=== PATIENT | female | born 1950 | race Caucasian/White ===

== ENCOUNTER → 2022-01-09 | Outpatient (CLI) | payer MEDICARE, SELFPAY ==
--- NOTE | 2022-01-09 12:00 | BONBX_PTH ---
PATIENT: RICHA CINTRON [facility] U#:[id number] AGE/SX: 71/F ROOM: RE01/09/[address]: Dr. Tani Schrader DO : 1950 BED: DIS: 01/09/2022 SPEC #: [id number] RECD: 01/09/22 14:52 STATUS: NEHEMIAH REDarlene #: [id number] EDGAR: 01/09/22 12:[address]: Tani Schrader DEPT: SURGICAL PATHOLOGY RECD BY: Mary Garrett ENTERED: 01/10/22 09:06 SP TYPE: Bone OTHR DR: TIARRA Tissues: Intervertebral disc, NOS Procedures: Decalcification bone/plaque Surgery Specimen Level IV HEADER OPERATION: Lumbar 5 kyphoplasty PRE-OP DIAGNOSIS: Wedge compression fracture of L5 vertebra TISSUE SUBMITTED: Lumbar 5 vertebra MICROSCOPIC DIAGNOSIS Lumbar 5 vertebra, kyphoplasty, biopsy: Pieces of bone with reactive changes, negative for malignancy, clinically compression fracture of L5 vertebra. See comment. LEORA:fabrice 01/11/2022 COMMENT Correlation with clinical, radiologic findings and appropriate follow up are necessary. MICROSCOPIC DESCRIPTION Slides are reviewed. GROSS DESCRIPTION Received in fixative is one container labeled with the patient's name and designated lumbar 5 vertebra. The specimen consists of multiple fragments of bone that in aggregate measure 1 x 0.5 x 0.2 cm. The specimen is totally submitted in one cassette after decalcification. / LEORA:fabrice 01/10/2022 TC:5 CPT: 20498, 46948
== END | disposition home or self-care (01) ==
LOC: LABSPEC 15:05
PROVIDERS: Referring Provider Orthopaedic Surgery; Visit Provider Orthopaedic Surgery
DX: M48.56XA Collapsed vertebra, not elsewhere classified, lumbar region, initial encounter for fracture (principal)
CPT/HCPCS: 88305; 88307; 88311

== ENCOUNTER 2023-01-25 17:00 | Inpatient (IN) | payer MEDICARE, SELFPAY ==
[2023-01-25 17:00] VITALS: BP 109/87; PULSE 84; RESP 16; TEMP 36.4; O2SAT 96
--- NOTE | 2023-01-25 19:36 | EDS_ITS ---
HPI HPI - GI History of Present Illness Chief Complaint: Nausea/Vomiting Informant: patient and spouse/S.O. Abdominal Pain/Flank Pain Onset: Days Context: Gradual Onset Timing: Intermittent Nausea/Vomiting/Emesis GI Symptom: Positive for Nausea and Vomiting Diarrhea/Melena/Hematochezia GI Symptom: Negative for Diarrhea, Melena or Hematochezia Associated Symptoms Associated Symptoms: Negative for Dysuria, Frequency, Hematuria or Urgency Narrative Narrative: 72-year-old female history of chronic kidney disease, hypertension. Has had nausea and vomiting for last 3 days. Decreased oral intake. She is able to hold down fluids. Primary care physician started in office and wanted her evaluated emergency department and receive IV fluids. She denies abdominal pain. Denies any dysuria. Denies any fever. Prior similar symptoms: Yes Recent Illness/Hospitalization: No PFSH PFSH Home Medications tramadol 50 mg tablet 50 mg PO Q6H PRN PRN Pain 08/10/13 [History Last Taken 08/10/13 05:30] aspirin 81 mg chewable tablet 81 mg PO DAILY@0800 ##30 08/13/13 [Rx Last Taken Unknown] atorvastatin 80 mg tablet 80 mg PO QHS ##30 08/13/13 [Rx Last Taken Unknown] Allergy/AdvReac Type Severity Reaction Status Date / Time Penicillins Allergy Intermediate Angioedema Verified 01/25/23 17:01 Sulfa (Sulfonamide Allergy Intermediate Angioedema Verified 01/25/23 17:01 Antibiotics) Social History Smoking Status: Former smoker ROS ROS ED ROS Narrative Nausea and vomiting. No diarrhea. No fever. No abdominal pain. Review of Systems ROS Unobtainable: Denies due to encephalopathy Constitutional Constitutional ED: Denies chills or fever(s) ENT ENT ED: Denies ear pain Cardiovascular Cardiovascular: Denies chest pain Respiratory/Chest Respiratory/Chest: Denies cough Gastrointestinal Gastrointestinal: Reports nausea and vomiting; Denies abdominal pain, constipation, diarrhea or melena Genitourinary Genitourinary ED: Denies dysuria or hematuria Musculoskeletal Musculoskeletal: Denies arthralgias Neurologic Neurologic: Denies headache(s) Psychiatric Psychiatric: Denies anxiety or depression Endocrine Endocrinology: Denies polydipsia Hematologic/Lymphatic Hematologic/Lymphatic: Denies easy bleeding Allergic/Immunologic Allergic/Immunologic ED: Denies mouth swelling or tongue swelling EXAM Physical Exam Narrative Exam Narrative: 72-year-old female no acute distress. Vital signs stable afebrile. Initial blood pressure 109/87. Heart rate 84. She does not look septic or toxic. H EENT exam unremarkable. Moist weeks membranes. Neck nontender. No JVD. Lungs clear to auscultation bilaterally. Heart regular rhythm rate about 80. Abdomen soft, nontender, nondistended, normal bowel sounds without peritoneal signs. No signs of obstruction. Right upper right lower quadrant unremarkable. Moving all 4 extremities. Nontender no edema. Patient is awake and alert with no focal motor deficits. I gave her a glass of water she was able to swallow without any difficulty and hold it down. Const Vital Signs: 01/25/23 17:00 01/25/23 20:04 Temperature 97.6 F L Temperature Source Temporal Pulse Rate 84 65 Respiratory Rate 16 18 Blood Pressure 109/87 H 145/73 H Blood Pressure Mean 94 97 Pulse Ox 96 96 Oxygen Delivery Method Room Air Room Air Positive well nourished and well developed; Negative for obese, cachectic, contractures or unkempt General Appearance ED: well developed and NAD; Negative for unkempt, cachectic, contractures or pallor Nutritional Appearance: Negative for cachectic or obese HEENT Reports moist mucous membranes normocephalic and atraumatic; Negative for trauma or tenderness Eyes PERRL and EOMs intact bilaterally General Eye ED: Negative for pale conjunctiva or scleral icterus Neck no lymphadenopathy, supple and no JVD General: Negative for tenderness Carotids: Negative for other Lymph Lymphatic: Negative for other Resp normal respiratory effort and clear to auscultation bilaterally Effort and Inspection: Negative for respiratory distress Auscultation: Negative for rales, rhonchi or wheezes Cardio regular rate, regular rhythm, S1 normal heart sound, S2 normal heart sound and no murmurs Rate: Negative for bradycardia or tachycardic Rhythm: Negative for abnormal rhythm GI non-tender, non-distended and no masses Inspection: Negative for abdominal distention Auscultation: normoactive bowel sounds Palpation: soft; Negative for tender, guarding, rigid, hepatomegaly, splenomega ly, hernia, mass, pulsatile mass or rebound tenderness present Back/Spine no CVA tenderness General Back: Negative for CVA tenderness Cervical Spine: Negative for cervical spine tenderness Thoracic Spine / Upper Back: Negative for thoracic spinal tenderness Lumbar Spine / Lower Back: Negative for lumbar spinal tenderness Coccyx: Negative for other Extremity full ROM General Extremety ED: Negative for edema or tenderness General Extremity: Negative for edema Neuro CN's II-XII intact bilaterally and moves all extremities Sensorium / Orientation: alert, oriented to person, oriented to place and oriented to time; Negative for orientation impaired, confused, lethargic or stuporous Motor Exam: strength 5/5 throughout Psych mental status grossly normal and thought process normal Appearance: Negative for unkempt Attitude: No agitated Mood & Affect: Negative for depressed, anxious or tearful Skin no wounds General Skin Exam: Negative for jaundice or pallor Lesions: no lesions Rashes: no rashes Trauma: Negative for abrasion Nails: Negative for discolored MDM MDM MDM Narrative Medical decision making narrative: 2-year-old nausea vomiting for several days. May be dehydrated. We will see of IV fluids. She does not need anything for nausea at this time. Her abdomen is completely benign I do not think she needs any imaging. Screening labs to be obtained. Repeat exam patient is feeling better after liter normal saline. Her labs showed a BUN and creatinine of 53 and 2.57. We do not have any recent labs we had them from 2013 about 9 years ago. I spoke to the primary care physician on- call for her primary care physician and they instructed me that that she had labs 3 weeks ago and had a normal BUN and creatinine of 10 and 1 at that time. Patient be admitted to the hospitalist for further IV hydration. Second liter be given in our. History & Record Review Discussion w/independent historian: Patient Additional record(s) reviewed:: Prior inpatient record, Prior outpatient record, Prior ED visit and Prior labs Lab Data Attestation: I reviewed the patient's lab results. Lab results narrative: CBC shows white count 9. H&H 11.8 and 37. Platelets 398. Electrolytes show a gap of 7. BUN of 53 and creatinine 2.57. Liver enzymes unremarkable. Labs: Laboratory Results - last 24 hr 01/25/23 20:05 WBC 9.0 RBC 3.95 L Hgb 11.8 L Hct 37.5 MCV 94.9 MCH 29.9 MCHC 31.5 L RDW Std Deviation 63.3 H RDW Coeff of Vangie 18.4 H Plt Count 398 MPV 10.2 Immature Gran % (Auto) 0.400 Neut % (Auto) 56.3 Lymph % (Auto) 29.7 Banks % (Auto) 10.7 H Eos % (Auto) 2.3 Baso % (Auto) 0.6 Absolute Neuts (auto) 5.1 Absolute Lymphs (auto) 2.67 Nucleated RBC % 0 Sodium 136 Potassium 3.8 Chloride 105 Carbon Dioxide 24.0 Anion Gap 7 BUN 53 H Creatinine 2.57 H Estim Creat Clear Calc 17.96 Est GFR (MDRD) Af Amer 24 L Est GFR (MDRD) Non-Af 20 L BUN/Creatinine Ratio 20.6 H Glucose 72 L Calcium 9.4 Total Bilirubin 0.30 AST 27 ALT 17 Alkaline Phosphatase 96 Total Protein 7.5 Albumin 3.4 Globulin 4.1 Albumin/Globulin Ratio 0.8 L Discharge Plan Triage Chief Complaint: Nausea/Vomiting ED Provider: Uzair Jim Dx/Rx/DC Orders Clinical Impression: Acute kidney injury, Acute dehydration, Nausea & vomiting Prescriptions: No Action tramadol 50 MG tablet 50 mg PO Q6H PRN PRN (Reason: Pain) Patient Comments: arthritic pain atorvastatin 80 MG tablet 80 mg PO QHS Qty: 30 0RF Patient Comments: cholesterol lowering aspirin 81 MG tablet,chewable 81 mg PO DAILY@0800 Qty: 30 0RF Patient Comments: antiplatelet Primary Care Provider: Carlos Carrero Referrals: Carlos Carreor DO [Primary Care Provider] - Disposition Disposition: [facility]
[2023-01-25 20:00] VITALS: BMI 20.3
[2023-01-25] MEDS: 0.9% Normal Saline 1,000 ML 1000 ML IV (20:02)
[2023-01-25 20:04] VITALS: BP 145/73; PULSE 65; RESP 18; O2SAT 96
[2023-01-25 20:33] LABS: Absolute Lymphocyte Count 2.67 X10^3/uL (0.83-4.51); Absolute Neutrophil Count 5.1 X10^3/uL (2.0-7.7); Basophil# 0.05 X10^3/uL; Basophil% 0.6 % (0-1); Eosinophil# 0.21 X10^3/uL; Eosinophils% 2.3 % (0-5); Hematocrit 37.5 % (37-47); Hemoglobin 11.8 g/dL (12.0-15.0); Lymphocyte # 2.67 X10^3/ul (0.83-4.51); Lymphocyte % 29.7 % (19-41); Mean Corp Hgb Conc 31.5 g/dL (32-36); Mean Corpuscular Hgb 29.9 pg (27.0-32.0); Mean Corpuscular Volume 94.9 fL (81-99); Mean Platelet Vol. 10.2 fl (6.2-12.0); Monocyte# 0.96 X10^3/uL; Monocyte% 10.7 % (0-10); NRBC Flagged by Analyzer 0 % (0-5); Neutrophil # 5.06 X10^3/uL (2.7-7.7); Neutrophil % 56.3 % (47-70); Platelet Count 398 K/mm3 (150-450); RBC Distribution Width CV 18.4 % (11.6-14.6); RBC Distribution Width SD 63.3 fl (35.1-43.9); Red Blood Count 3.95 M/mm3 (4.2-5.4)
[2023-01-25 20:54] LABS: ALB/GLOB Ratio 0.8 RATIO (0.9-2.4); AST(SGOT) 27 U/L (15-37); Alanine Aminotransfer ALT/SGPT 17 U/L (13-56); Albumin, Serum 3.4 g/dL (3.2-5.0); Alkaline Phosphatase 96 U/L (45-117); Anion Gap 7 (5-15); BUN 53 mg/dL (7-18); BUN/Creat Ratio 20.6 RATIO (10-20); Calcium,Total 9.4 mg/dL (8.5-10.1); Chloride 105 mmol/L (98-107); Creatinine, Serum 2.57 mg/dL (0.55-1.02); EST Glomerular Filtration Rate 20 mL/min (>60); Est Glom Filt Rate - Afr Amer 24 mL/min (>60); Estimated Creatinine Clearance 17.96 ml/min; Globulin 4.1 g/dL (2.2-4.2); Glucose 72 mg/dL (74-106); Potassium 3.8 mmol/L (3.5-5.1); Protein, Total 7.5 g/dL (6.4-8.2); Sodium Level 136 mmol/L (136-145)
[2023-01-25] MEDS: 0.9% Normal Saline 1,000 ML 999 ML IV (22:14)
[2023-01-25 22:15] VITALS: BP 112/61; PULSE 86; RESP 18; O2SAT 96
--- NOTE | 2023-01-25 23:20 | HP.PCM.HOS_ITS ---
HPI - General General Date of Admission: 01/25/23 Date of Service: 01/25/23 Chief Complaint: Intractable N/V. HPI Narrative The patient is a 72 y/o F w/ PMHx: Possible mural thrombus on chronic eliquis but patient poor historian regarding this history, Anxiety and Depression, HTN, CKD unclear stage, recent discharge following mechanical fall w/ L hip fracture s/p partial replacement who presents to the [facility] ED on 01/25/23 with history of p ersistent unrelenting nausea and emesis with no fever, chills, diarrhea, abdominal pain/bloating that lasted 3 days and the completely resolved over the last 3 days aside from notable fatigue and malaise but she has been tolerating oral intake now without issue but presented for evaluation by PCP as follow-up and labs were obtained with notable DANIEL prompting referral to the ED for evaluation and treatment. She noted that her family was well and when she was sick did not have any similar symptoms. Work-up in the ED included heart rate 65, BP 145/73, respiratory rate 18, 96% on room air with most recent vital signs heart rate 86, BP 112/61, CBC with WC 9.0, hemoglobin 11.8, MCV 94.9, platelet 398 without marked shift, CMP with BUN/creatinine 53/2.57, glucose 72, Paddock profile unremarkable. In the ED patient administered 2 L normal saline. [facility] Medical History (Updated 01/26/23 @ 00:[address] Khloe Salazar MD) Anxiety and depression Chronic anemia Chronic anticoagulation CKD (chronic kidney disease) Former tobacco use HLD (hyperlipidemia) HTN (hypertension) Home Medications tramadol 50 mg tablet 50 mg PO Q6H PRN PRN Pain 08/10/13 [History Last Taken 08/10/13 05:30] acetaminophen 500 mg capsule 1,000 mg PO Q6H PRN pain 01/25/23 [History Last Taken Unknown] alendronate 70 mg tablet 70 mg PO QWEEK 01/25/23 [History Last Taken Unknown] apixaban 5 mg tablet (Eliquis) 5 mg PO BID 01/25/23 [History Last Taken Unknown] carvedilol 25 mg tablet 25 mg PO BID 01/25/23 [History Last Taken Unknown] duloxetine 30 mg capsule,delayed release 60 mg PO DAILY 01/25/23 [History Last Taken Unknown] potassium 99 mg tablet 99 mg PO DAILY 01/25/23 [History Last Taken Unknown] valsartan 80 mg tablet 80 mg PO BID 01/25/23 [History Last Taken Unknown] Allergy/AdvReac Type Severity Reaction Status Date / Time Penicillins Allergy Intermediate Angioedema Verified 01/25/23 17:01 Sulfa (Sulfonamide Allergy Intermediate Angioedema Verified 01/25/23 17:01 Antibiotics) adopted (She does not know her biological maternal or paternal family history.) Surgical History (Updated 01/26/23 @ 00:[address] Khloe Salazar MD) History of hip surgery History of hysterectomy Hx of appendectomy Hx of cholecystectomy Social History (Updated 01/26/23 @ 00:[address] Khloe Salazar MD) household members: spouse Smoking Status: Former smoker how long ago did patient quit smoking: Quit 7 years prior to 01/26/23, smoked 1 ppd x 40 yrs. alcohol intake: never substance use type: does not use ROS ROS Narrative Admission Review of Systems: CONSTITUTIONAL: No weight loss, fever, chills, + weakness or fatigue. HEENT: Eyes: No visual loss, blurred vision, double vision or yellow sclerae. Ears, Nose, Throat: No hearing loss, sneezing, congestion, runny nose or sore throat. SKIN: No rash or itching, lesions, wounds. CARDIOVASCULAR: No chest pain, chest pressure or chest discomfort, palpitations, edema, orthopnea, syncopal events. RESPIRATORY: No shortness of breath, cough or sputum, wheezing, hemoptysis. GASTROINTESTINAL: + anorexia, nausea, vomiting. No diarrhea, abdominal pain, melena, BRBPR. GENITOURINARY: No dysuria, frequency, urgency or retention. NEUROLOGICAL: No headache, dizziness, syncope, paralysis, ataxia, numbness or tingling in the extremities, focal weakness, change in bowel or bladder control, seizure. MUSCULOSKELETAL: + muscle, back pain, joint pain or stiffness. HEMATOLOGIC: + anemia, bleeding or bruising. LYMPHATICS: No enlarged nodes. No history of splenectomy. PSYCHIATRIC: + history of depression or anxiety. ENDOCRINOLOGIC: No reports of sweating, cold or heat intolerance. No polyuria or polydipsia. ALLERGIES: + history of angioedema. Vital Signs Vital Signs Vital Signs: 01/25/23 17:00 01/25/23 20:04 01/25/23 22:15 Temperature 97.6 F L Temperature Source Temporal Pulse Rate 84 65 86 Respiratory Rate 16 18 18 Blood Pressure 109/87 H 145/73 H 112/61 Blood Pressure Mean 94 97 78 Pulse Ox 96 96 96 Oxygen Delivery Method Room Air Room Air Room Air Weight Weight: 126 lb 12.253 oz Body Mass Index (BMI) 20.3 Physical Exam Narrative Physical Examination: General: Awake, alert, oriented x 3 and cooperative, seated upright in the ED bed, fatigued but notes still feeling well and tolerating diet. Skin: Normal color, normal turgor, no icterus, no cyanosis except for recent left hip partial replacement status post mechanical fall with fracture, incision well-appearing, intact, miriam recently removed. HEENT: AT/NC, EOMI, PERRLA, mildly dry MM, no carotid bruits or JVD noted. Lungs: CTA bilaterally, moderate effort, mild decrease BL bases, no rales, ronchi or wheezing. Heart: Regular rate and rhythm; no gallop, rub audible. Abdomen: Soft, NTTP, ND, mildly hyperactive BS, no HSM. Extremities: No cyanosis, clubbing, or edema, see skin is status post recent left hip partial replacement status post mechanical fall with hip fracture. Neurological: Patient awake, alert, oriented as noted, cognitive function intact; pupils equally reactive to light and accommodation, cranial nerves II- XII grossly normal, moving all 4 extremities, no focal deficits, strength moderately globally decreased secondary to acute presentation and recent left hip repair Psychiatric: Affect appears fatigued otherwise normal, no acute evidence of depressive or anxiety feelings. Results Lab / Micro Data 01/25/23 20:05 01/25/23 20:05 Labs: Laboratory Results - last 24 hr 01/25/23 20:05: WBC 9.0, RBC 3.95 L, Hgb 11.8 L, Hct 37.5, MCV 94.9, MCH 29.9, MCHC 31.5 L, RDW Std Deviation 63.3 H, RDW Coeff of Vangie 18.4 H, Plt Count 398, MPV 10.2, Immature Gran % (Auto) 0.400, Neut % (Auto) 56.3, Lymph % (Auto) 29.7, Routt % (Auto) 10.7 H, Eos % (Auto) 2.3, Baso % (Auto) 0.6, Absolute Neuts (auto) 5.1, Absolute Lymphs (auto) 2.67, Nucleated RBC % 0, Sodium 136, Potassium 3.8, Chloride 105, Carbon Dioxide 24.0, Anion Gap 7, BUN 53 H, Creatinine 2.57 H, Estim Creat Clear Calc 17.96, Est GFR (MDRD) Af Amer 24 L, Est GFR (MDRD) Non-Af 20 L, BUN/Creatinine Ratio 20.6 H, Glucose 72 L, Calcium 9.4, Total Bilirubin 0.30, AST 27, ALT 17, Alkaline Phosphatase 96, Total Protein 7.5, Albumin 3.4, Globulin 4.1, Albumin/Globulin Ratio 0.8 L Assessment & Plan Assessment/Plan (1) Acute kidney injury: PLAN: Plan The patient is a 72 y/o F w/ PMHx: Possible mural thrombus on chronic eliquis but patient poor historian regarding this history, Anxiety and Depression, HTN, CKD unclear stage, recent discharge following mechanical fall w/ L hip fracture s/p partial replacement who presents to the [facility] ED on 01/25/23 with history of persistent unrelenting nausea and emesis with no fever, chills, diarrhea, abdominal pain/bloating that lasted 3 days and the completely resolved over the last 3 days aside from notable fatigue and malaise but she has been tolerating oral intake now without issue but presented for evaluation by PCP as follow-up and labs were obtained with notable DANIEL prompting referral to the ED for evaluation and treatment. #2. Acute kidney injury on CKD unclear stage: Patient reports history of CKD but unclear stage, admission BUN/Cr 53/2.57, prior baseline creatinine noted to be 0.7-0.9 however these labs are very remote from 2014 but again she does report CKD but unclear extent but the PCP office noted recently BUN/Cr 10/1.0 obtained 3 weeks ago per her primary care office. Likely secondary to recent intractable N/V, will admit to MS, will hydrate, hold nephrotoxic medications and repeat chemistry in AM. If it is not improving low threshold to obtain nephrology consultation/renal ultrasound as well as FeNa ass essment. Urinalysis has been requested and is pending. #2. N/V, resolved, possibly secondary to recent acute viral syndrome/gastroenteritis: Given #1 will continue aggressive hydration, given this has completely resolved will hold on obtaining respiratory viral panel and given no diarrhea will defer stool assessment/studies, given tolerating intake will allow regular diet, maintain on fall precautions. #3. Recent mechanical fall with left hip fracture: Status post partial hip replacement, will continue fall precautions, PT and OT assessment as well as as needed pain regimen. #4. Hypertension: BP in the ED currently normal range, will temporally hold hypertensive regimen and may resume once appropriate, holding nephrotoxic agents given concern for DANIEL as well as noted. #5. Hyperlipidemia: From current list does not appear to be on a statin but had been in the past, clarifying. #6. Anxiety and depression: We will continue patient home chronic duloxetine regimen #7. Normocytic anemia, unclear chronicity: Admission hemoglobin 11.8, MCV 94.9, prior baseline labs unfortunately are from 2013 and at that time baseline was 12-13, will continue to trend CBC to elucidate. #8. Chronic anticoagulation possibly secondary to mural thrombus, unclear exact diagnosis: Patient reports usage of chronic Eliquis therapy because of some type of clot but its unclear exact location and from description was not specifically a DVT or a pulmonary embolism, possibly a mural thrombus, will continue chronic anticoagulation. #9. Former tobacco use: Encourage continued tobacco cessation. #10. DVT prophylaxis: We will continue patient home apixaban regimen. #11. CODE status: Patient does not have HCPOA or LW in place but her daughter she notes would be her decision maker if needed. Discussed CODE status at length including difference between FULL code, DNR-CCA and DNR-CC status. Following discussions about the differences in these status, requested Full Code. Advanced Care Planning Face to Face Time: 16 minutes. Charges/Coding Visit Charges Inpatient E&M: 40282 Init Hosp L3 Procedures Hospitalists Procedures: 98669 Advncd Care Plan 30 Min
[2023-01-26] VITALS (7 sets, daily range): BP systolic 113–139; BP diastolic 66–96; PULSE 66–78; RESP 16–18; TEMP 36.6–37.2; O2SAT 94–97; BMI 21.5
[2023-01-26] MEDS: 0.9% Saline Lock 10 ML Syringe IV (01:29)
[2023-01-26] MEDS: 0.9% Normal Saline 1,000 ML 100 ML IV ×3 (01:31→22:09)
[2023-01-26 06:36] LABS: Absolute Lymphocyte Count 1.99 X10^3/uL (0.83-4.51); Absolute Neutrophil Count 3.6 X10^3/uL (2.0-7.7); Basophil# 0.03 X10^3/uL; Basophil% 0.5 % (0-1); Eosinophil# 0.12 X10^3/uL; Eosinophils% 1.9 % (0-5); Hematocrit 30.8 % (37-47); Hemoglobin 9.4 g/dL (12.0-15.0); Lymphocyte # 1.99 X10^3/ul (0.83-4.51); Lymphocyte % 30.8 % (19-41); Mean Corp Hgb Conc 30.5 g/dL (32-36); Mean Corpuscular Hgb 29.2 pg (27.0-32.0); Mean Corpuscular Volume 95.7 fL (81-99); Monocyte# 0.76 X10^3/uL; Monocyte% 11.7 % (0-10); NRBC Flagged by Analyzer 0 % (0-5); Neutrophil # 3.55 X10^3/uL (2.7-7.7); Neutrophil % 54.8 % (47-70); Platelet Count 281 K/mm3 (150-450); RBC Distribution Width CV 18.3 % (11.6-14.6); RBC Distribution Width SD 63.7 fl (35.1-43.9); Red Blood Count 3.22 M/mm3 (4.2-5.4); White Blood Count 6.5 K/mm3 (4.4-11.0)
[2023-01-26 07:48] LABS: ALB/GLOB Ratio 0.8 RATIO (0.9-2.4); AST(SGOT) 11 U/L (15-37); Alanine Aminotransfer ALT/SGPT 11 U/L (13-56); Albumin, Serum 2.4 g/dL (3.2-5.0); Alkaline Phosphatase 77 U/L (45-117); Anion Gap 3 (5-15); BUN 38 mg/dL (7-18); BUN/Creat Ratio 22.8 RATIO (10-20); Calcium,Total 8.2 mg/dL (8.5-10.1); Chloride 117 mmol/L (98-107); Creatinine, Serum 1.67 mg/dL (0.55-1.02); EST Glomerular Filtration Rate 32 mL/min (>60); Est Glom Filt Rate - Afr Amer 39 mL/min (>60); Globulin 2.9 g/dL (2.2-4.2); Glucose 121 mg/dL (74-106); Potassium 3.5 mmol/L (3.5-5.1); Protein, Total 5.3 g/dL (6.4-8.2); Sodium Level 143 mmol/L (136-145)
[2023-01-26] MEDS: APIXABAN 2.5 MG TABLET (WCH) PO ×2 (09:43→22:26)
[2023-01-26] MEDS: DULoxetine Hcl 60 MG Capsule PO (09:43)
[2023-01-26] MEDS: Carvedilol 25 MG Tablet PO ×2 (09:43→22:26)
--- NOTE | 2023-01-26 11:19 | PN_ITS ---
Subjective Subjective Patient seen and examined. She says she feels much better today. She was admitted with intractable nausea and vomiting which have resolved. Review of systems otherwise negative. Creatinine has trended down from 2.57 on admission to 1.67. She has otherwise remained hemodynamically stable. Objective Data Objective Data Vital Signs: Vital Signs Temp Pulse Resp BP Pulse Ox O2 Del Method 98 F 78 18 133/68 H 96 Room Air 01/26/23 09:53 01/26/23 09:53 01/26/23 09:53 01/26/23 09:53 01/26/23 10:13 01/26/23 10:13 Oxygen Delivery Method Room Air Weight: 129 lb 6.581 oz Body Mass Index (BMI) 21.5 Intake & Output: Intake and Output for Last 24 Hours 01/24/23 01/25/23 01/26/23 23:59 23:59 23:59 Intake Total 1999 300 / 300 Balance 1999 300 / 300 Lab / Micro Data 01/26/23 06:08 01/26/23 06:08 Labs: Laboratory Results - last 24 hr 01/25/23 20:05: WBC 9.0, RBC 3.95 L, Hgb 11.8 L, Hct 37.5, MCV 94.9, MCH 29.9, MCHC 31.5 L, RDW Std Deviation 63.3 H, RDW Coeff of Vangie 18.4 H, Plt Count 398, MPV 10.2, Immature Gran % (Auto) 0.400, Neut % (Auto) 56.3, Lymph % (Auto) 29.7, [place] % (Auto) 10.7 H, Eos % (Auto) 2.3, Baso % (Auto) 0.6, Absolute Neuts (auto) 5.1, Absolute Lymphs (auto) 2.67, Nucleated RBC % 0, Sodium 136, Potassium 3.8, Chloride 105, Carbon Dioxide 24.0, Anion Gap 7, BUN 53 H, Creatinine 2.57 H, Estim Creat Clear Calc 17.96, Est GFR (MDRD) Af Amer 24 L, Est GFR (MDRD) Non-Af 20 L, BUN/Creatinine Ratio 20.6 H, Glucose 72 L, Calcium 9.4, Total Bilirubin 0.30, AST 27, ALT 17, Alkaline Phosphatase 96, Total Protein 7.5, Albumin 3.4, Globulin 4.1, Albumin/Globulin Ratio 0.8 L 01/26/23 06:08: WBC 6.5, RBC 3.22 L, Hgb 9.4 L, Hct 30.8 L, MCV 95.7, MCH 29.2, MCHC 30.5 L, RDW Std Deviation 63.7 H, RDW Coeff of Vangie 18.3 H, Plt Count 281, MPV 10.0, Immature Gran % (Auto) 0.300, Neut % (Auto) 54.8, Lymph % (Auto) 30.8, [place] % (Auto) 11.7 H, Eos % (Auto) 1.9, Baso % (Auto) 0.5, Absolute Neuts (auto) 3.6, Absolute Lymphs (auto) 1.99, Nucleated RBC % 0, Sodium 143, Potassium 3.5, Chloride 117 H, Carbon Dioxide 23.0, Anion Gap 3 L, BUN 38 H, Creatinine 1.67 H, Estim Creat Clear Calc 27.40, Est GFR (MDRD) Af Amer 39 L, Est GFR (MDRD) Non-Af 32 L, BUN/Creatinine Ratio 22.8 H, Glucose 121 H, Calcium 8.2 L, Total Bilirubin 0.10 L, AST 11 L, ALT 11 L, Alkaline Phosphatase 77, Total Protein 5.3 L, Albumin 2.4 L, Globulin 2.9, Albumin/Globulin Ratio 0.8 L Physical Exam Const alert, oriented x3 and no apparent distress General Appearance: cooperative HEENT normocephalic, head/scalp atraumatic, moist oral mucous membranes and oropharynx normal Eyes PERRL and EOMs intact bilaterally Neck no lymphadenopathy and supple Lymph Lymphatic: no lymphadenopathy noted and no lymphedema noted Resp normal respiratory effort, normal air movement and clear to auscultation bilaterally Cardio regular rate, regular rhythm, S1 normal heart sound, S2 normal heart sound and no murmurs Palpation: normal PMI GI normal to inspection, nondistended, normoactive bowel sounds, soft to palpation and non-tender Extremity normal capillary refill and no clubbing, cyanosis or edema Skin General Skin Exam: no breakdown Neuro CN's II-XII intact bilaterally, no focal motor deficits, no sensory deficits n oted and deep tendon reflexes 2+ bilaterally Motor Exam: strength 5/5 throughout Psych thought process normal, cooperative and affect normal Appearance: appropriate Assessment & Plan Assessment/Plan (1) Nausea & vomiting: (2) Acute dehydration: (3) Acute kidney injury: PLAN: Plan #DANIEL due to intractable nausea and vomiting * Cr has trended down from 2.57 to 1.67 today. * continue gentle hydration * trend Cr * #Intractable nausea and vomiting: resolved. Was thought to be due to viral gastroenteritis. #Recent left hip fracture due to mechanical fall * PT/OT on board. Fall precautions * s/p left partial hip replacement. #Hypertension: on carvedilol. IV hydralazine prn. #Hyperlipidemia: on statin #Anxiety and depression: on duloxetine. 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 Location of clot is not clear. * #DVT prophylaxis: on eliquis. Disposition: anticipate dc home tomorrow if Cr continues to trend down. Charges/Coding Visit Charges Inpatient E&M: 74064 Subs Hosp L2
--- NOTE | 2023-01-26 15:00 | CASEMGMT ---
LATANYA CARTAGENA Discharge Planning Assessment: Face to Face with patient for initial transition planning/care coordination assessment. LATANYA CARTAGENA introduced self and role at [facility], Pt alert, voices understanding, and is agreeable to participating in assessment with spouse at bedside. Care providers, pharmacy, and demographics verified. Admitting dx: intractable N/V, DANIEL PCP: Magan Specialists: none Preferred Pharmacy: [facility] [place] Insurance: [employer] Prescription Benefit: yes LNOK: spouse Julio Living Arrangements: Pt lives with her spouse and daughter Мария in a single story home with one step to enter. Pt states she had been independent with ADLs. Spouse and daughter are able to assist her if needed. Transportation: Spouse drives DME: shower chair, grab bars, hand held shower, lift chair, high rise toilet, walker, rollator, w/c. SNF/HHC: denies any previous providers Pt's goal: Return home with support of family and attend previously planned outpatient tx at the [facility] in [place] (has order for this tx at home) PT/OT evaluations pending. Will watch for any additional therapy recommendations. Pt prefers to return home and does not want to be discharged to a SNF. Doron Brown RN CM
[2023-01-27 03:00] VITALS: BP 156/75; PULSE 68; RESP 18; TEMP 37.2; O2SAT 97
[2023-01-27 06:39] LABS: Absolute Lymphocyte Count 1.55 X10^3/uL (0.83-4.51); Absolute Neutrophil Count 2.9 X10^3/uL (2.0-7.7); Basophil# 0.01 X10^3/uL; Basophil% 0.2 % (0-1); Eosinophil# 0.11 X10^3/uL; Eosinophils% 2.2 % (0-5); Hematocrit 28.5 % (37-47); Hemoglobin 8.5 g/dL (12.0-15.0); Lymphocyte # 1.55 X10^3/ul (0.83-4.51); Lymphocyte % 30.8 % (19-41); Mean Corp Hgb Conc 29.8 g/dL (32-36); Mean Corpuscular Hgb 28.8 pg (27.0-32.0); Mean Corpuscular Volume 96.6 fL (81-99); Mean Platelet Vol. 10.3 fl (6.2-12.0); Monocyte# 0.48 X10^3/uL; Monocyte% 9.5 % (0-10); NRBC Flagged by Analyzer 0 % (0-5); Neutrophil # 2.87 X10^3/uL (2.7-7.7); Neutrophil % 56.9 % (47-70); Platelet Count 254 K/mm3 (150-450); RBC Distribution Width CV 18.5 % (11.6-14.6); RBC Distribution Width SD 64.7 fl (35.1-43.9); Red Blood Count 2.95 M/mm3 (4.2-5.4)
[2023-01-27 07:08] LABS: Anion Gap 8 (5-15); BUN 21 mg/dL (7-18); BUN/Creat Ratio 19.3 RATIO (10-20); Chloride 115 mmol/L (98-107); Creatinine, Serum 1.09 mg/dL (0.55-1.02); EST Glomerular Filtration Rate 52 mL/min (>60); Est Glom Filt Rate - Afr Amer 63 mL/min (>60); Glucose 96 mg/dL (74-106); Potassium 3.6 mmol/L (3.5-5.1); Sodium Level 144 mmol/L (136-145)
[2023-01-27 07:52] VITALS: BP 155/75; PULSE 65; RESP 16; TEMP 36.9; O2SAT 96
[2023-01-27 08:03] VITALS: O2SAT 95
--- NOTE | 2023-01-27 09:58 | PCM.DC.SUM ---
Providers Date of Admission: 01/25/23 Date of Discharge: 01/27/23 Primary Care Physician: Dr. Carlos Carrero DO Reason For Visit: INTRACTABLE N/V, DANIEL Diagnosis Discharge Diagnosis (1) Nausea & vomiting: Status: Acute Code(s): R11.2 - Nausea with vomiting, unspecified (2) Acute dehydration: Status: Acute Code(s): E86.0 - Dehydration (3) Acute kidney injury: Status: Acute Code(s): N17.9 - Acute kidney failure, unspecified Plan #DANIEL due to intractable nausea and vomiting Cr has trended down from 2.57 to 1.67 today. continue gentle hydration trend Cr #Intractable nausea and vomiting: resolved. Was thought to be due to viral gastroenteritis. #Recent left hip fracture due to mechanical fall PT/OT on board. Fall precautions s/p left partial hip replacement. #Hypertension: on carvedilol. IV hydralazine prn. #Hyperlipidemia: on statin #Anxiety and depression: on duloxetine. #Chronic anticoagulation due to mural thrombus on eliquis. Location of clot is not clear. #DVT prophylaxis: on eliquis. Disposition: anticipate dc home tomorrow if Cr continues to trend down. Medications at Discharge Home Medications tramadol 50 mg tablet 50 mg PO Q6H PRN PRN Pain 08/10/13 acetaminophen 500 mg capsule 1,000 mg PO Q6H PRN pain 01/25/23 alendronate 70 mg tablet 70 mg PO QWEEK 01/25/23 apixaban 5 mg tablet (Eliquis) 5 mg PO BID 01/25/23 carvedilol 25 mg tablet 25 mg PO BID 01/25/23 duloxetine 30 mg capsule,delayed release 60 mg PO DAILY 01/25/23 potassium 99 mg tablet 99 mg PO DAILY 01/25/23 valsartan 80 mg tablet 80 mg PO BID 01/25/23 Hospital Course Operations None Procedures None Summary of Care Provided Minutes Spent on Discharge: 47 Hospital Course: Patient is a 72-year-old female with past medical history as outlined was admitted through the ED on 01/25/2023 on account of intractable nausea and vomiting. She had had no fever or chills or diarrhea but did admit to abdominal pain which had lasted for about 3 days prior to admission. She also had assisted fatigue and malaise. Patient had had a recent history of mechanical fall with left hip fracture s/p partial hip replacement. On admission she was found to be in DANIEL with creatinine of 2.57. She was admitted and managed for DANIEL due to intractable nausea and vomiting. Nausea vomiting resolved and a creatinine also trended down with hydration. Creatinine subsequently normalized and patient felt much better. She remained stable and was discharged home on 01/27/2023. Patient seen and examined prior to discharge. She had no active complaints and had an uneventful night. Review of systems otherwise negative. Labs and vitals reviewed. Home medication reviewed and reconciled. Physical Exam Const alert, oriented x3 and no apparent distress General Appearance: cooperative and comfortable HEENT normocephalic, head/scalp atraumatic, hearing grossly normal bilaterally, moist oral mucous membranes and oropharynx normal Mouth: oral and palatal mucosa normal Eyes PERRL, EOMs intact bilaterally and conjunctivae normal Neck no lymphadenopathy and supple Lymph Lymphatic: no lymphadenopathy noted and no lymphedema noted Resp normal respiratory effort, normal air movement and clear to auscultation bilaterally Cardio regular rate, regular rhythm, S1 normal heart sound, S2 normal heart sound and no murmurs Palpation: normal PMI GI normal to inspection, nondistended, normoactive bowel sounds, soft to palpation and non-tender Extremity normal capillary refill and no clubbing, cyanosis or edema Skin no rashes or lesions noted General Skin Exam: no breakdown Neuro oriented x3, CN's II-XII intact bilaterally, moves all extremities, no focal motor deficits, no sensory deficits noted and deep tendon reflexes 2+ bilaterally Motor Exam: strength 5/5 throughout Psych thought process normal, cooperative and affect normal Appearance: appropriate Medical Records Data Medical Nutrition Assessment Dietitian: Malnutrition Criteria Met Start: 01/26/23 19:43 Freq: Status: Active Protocol: Document 01/26/23 19:43 [facility] (Rec: 01/26/23 19:43 [facility] [id number]) Nutrition Malnutrition Evidence of Malnutrition Exists Yes Malnutrition (moderate): Acute Illness/Injury Evidenced By Suboptimal Energy Intake ( Moderate),Weight Loss (Severe) ,Physical Changes (Mild), Physical Changes (Moderate) Clinical Problem Acute Disease or Injury Related Malnutrition Etiology related to physiological changes decreasing oral intakes Signs/Symptoms as evidenced by significant weight loss of 5.9% in less than one month based upon CBW of 129lb and UBW ~137lb, mild to moderate muscle and fat wasting (temples, buccal, interosseous, etc.) and decreased oral intakes of less than 75% of estimated nutrient needs for at least 7 days. Status Active Problem Recommendation Dietitian Recommendations/Changes Change diet from Cardiac - Heart Healthy to Regular - No Added Salad to allow for some liberalization and help increase oral intakes, yet still limit sodium intakes. Pt not interested in ONS use. Will continue to follow and modify interventions as needed . Weight / BMI Weight Weight: 4.72 oz Body Mass Index (BMI) 0.0 ABG / Lab / Microbiology Data 01/27/23 06:00 01/27/23 06:00 Laboratory: Laboratory Results - last 24 hr 01/27/23 06:00: WBC 5.0, RBC 2.95 L, Hgb 8.5 L, Hct 28.5 L, MCV 96.6, MCH 28.8, MCHC 29.8 L, RDW Std Deviation 64.7 H, RDW Coeff of Vangie 18.5 H, Plt Count 254, MPV 10.3, Immature Gran % (Auto) 0.400, Neut % (Auto) 56.9, Lymph % (Auto) 30.8, [place] % (Auto) 9.5, Eos % (Auto) 2.2, Baso % (Auto) 0.2, Absolute Neuts (auto) 2.9, Absolute Lymphs (auto) 1.55, Nucleated RBC % 0, Sodium 144, Potassium 3.6, Chloride 115 H, Carbon Dioxide 21.0, Anion Gap 8, BUN 21 H, Creatinine 1.09 H, Estim Creat Clear Calc 0.10, Est GFR (MDRD) Af Amer 63, Est GFR (MDRD) Non-Af 52 L, BUN/Creatinine Ratio 19.3, Glucose 96, Calcium 8.0 L D/C Instructions Discharge Diet: Low fat / Low cholesterol Weight Bearing Status: Weight bearing as tolerated Call your doctor if you observe: Fever of 101 or Higher, Shortness of breath, Dizziness, Swelling in the ankles, Chest pain and Increased palpitations (irregular heartbeat) Meaningful Use Info Meaningful Use Diagnoses (Choose all that apply): None applicable Discharge Plan Admission Admit Date/Time: 01/25/23 23:24 Primary Reason for Your Visit: DANIEL, intractable nausea and vomiting Attending Provider: Amanda Rdz Primary Care Provider: Carlos Carrero Consulting Providers: Khloe Salazar Instructions Patient Instructions: Dehydration Discharge Orders/Prescriptions Prescriptions: Continued tramadol 50 MG tablet 50 mg PO Q6H PRN PRN (Reason: Pain) Patient Comments: arthritic pain alendronate 70 mg tablet 70 mg PO QWEEK Patient Comments: take 1 tablet by mouth every week Rx Instructions: saturdays valsartan 80 mg tablet 80 mg PO BID Patient Comments: take 1 tablet by mouth twice a day Eliquis 5 mg tablet 5 mg PO BID carvedilol 25 mg tablet 25 mg PO BID duloxetine 30 mg capsule,delayed release(DR/EC) 60 mg PO DAILY Patient Comments: take 2 capsules by mouth once daily potassium 99 mg tablet 99 mg PO DAILY acetaminophen 500 mg capsule 1,000 mg PO Q6H PRN (Reason: pain) Referrals / Follow Up: Carlos Carrero DO [Primary Care Provider] - Within 2 Weeks Disposition Disposition (needs filled in before D/C Order can be placed): Home, Self Care Charges/Coding Visit Charges Inpatient E&M: 05190 Disch Hosp >30min
[2023-01-27] MEDS: DULoxetine Hcl 60 MG Capsule PO (10:40)
[2023-01-27] MEDS: APIXABAN 2.5 MG TABLET (WCH) PO (10:41)
[2023-01-27] MEDS: Carvedilol 25 MG Tablet PO (10:41)
== END 2023-01-27 11:17 | disposition home or self-care (01) | DRG 684 ==
LOC: ED 22:14 → MS3 23:41
PROVIDERS: Admitting Provider Family Medicine; Emergency Provider Emergency Medicine; Visit Provider Student in an Organized Health Care Education/Training Program
DX: N17.9 Acute kidney failure, unspecified (principal); I51.3 Intracardiac thrombosis, not elsewhere classified; I12.9 Hypertensive chronic kidney disease with stage 1 through stage 4 chronic kidney disease, or unspecified chronic kidney disease; N18.9 Chronic kidney disease, unspecified; F32.A Depression, unspecified; E86.0 Dehydration; E78.5 Hyperlipidemia, unspecified; F41.9 Anxiety disorder, unspecified; A08.4 Viral intestinal infection, unspecified; S72.92XD Unspecified fracture of left femur, subsequent encounter for closed fracture with routine healing; Z79.01 Long term (current) use of anticoagulants; Z79.82 Long term (current) use of aspirin; Z79.899 Other long term (current) drug therapy; Z87.891 Personal history of nicotine dependence; Z96.642 Presence of left artificial hip joint
CPT/HCPCS: 36415; 80048; 80053; 85025; 94668; 97802; 99252; 99283; J7030; A4216; G0463

== ENCOUNTER → 2023-08-14 | Outpatient (CLI) | payer MEDICARE, SELFPAY ==
--- NOTE | 2023-08-14 14:53 | RAD_ITS ---
STUDY: X-RAY - LUMBOSACRAL SPINE REASON FOR EXAM: Female, 73 years old. Radiculopathy. TECHNIQUE: 5 view(s) of the lumbosacral spine, including lateral flexion and extension views, were obtained. COMPARISON: 04/02/2008 FINDINGS: Osteopenia. Normal lumbar lordosis. Mild levoscoliosis. Normal vertebral alignment. Interval development of multiple compression fractures of the lower lumbar spine, L3, L4 and L5 since the prior study. Vertebroplasty changes at L4-5, new since the prior study. Diffuse moderate intervertebral disc space narrowing with osteophyte formation. Limited flexion and extension with no abnormal motion. Left total hip arthroplasty unchanged. Moderate arthrosis of the right hip unchanged. Vascular calcification. RAD/L/S Spine w Bend Min 6 Vw IMPRESSION: Osteopenia with interval development of multiple compression fractures, kyphoplasty since the prior study and diffuse moderate lower thoracic and lumbosacral spondylosis. Limited flexion and extension with no abnormal motion. No other abnormality. Electronically Signed: Ramos Jarvis MD at 16:02 EST ,
== END | disposition home or self-care (01) ==
LOC: MTRAD 14:52
PROVIDERS: Referring Provider Anesthesiology Pain Medicine; Visit Provider Anesthesiology Pain Medicine
DX: M54.17 Radiculopathy, lumbosacral region (principal)
CPT/HCPCS: 72114; 72120

== ENCOUNTER → 2023-12-25 | Outpatient (CLI) | payer MEDICARE, SELFPAY ==
--- NOTE | 2023-12-25 12:40 | RAD_ITS ---
STUDY: X-RAY - THORACIC SPINE REASON FOR EXAM: Female, 73 years old. PAIN TECHNIQUE: 5 view(s) of the thoracic spine were obtained. COMPARISON: None. FINDINGS: Normal kyphosis of the thoracic spine. No subluxation on the flexion or extension views. Mild dextroscoliosis centered at T7. Normal thoracic vertebrae and endplates. There is multilevel disc space narrowing of the thoracic spine. The soft tissue structures are unremarkable. RAD/Thoracic Spine Min 4 Views IMPRESSION: 1. Mild dextroscoliosis with mild degenerative disc disease of the midthoracic spine. 2. No instability. Electronically Signed: Soren Vargas MD at 13:16 EDT ,
== END | disposition home or self-care (01) ==
LOC: MTRAD 12:38
PROVIDERS: Referring Provider Anesthesiology Pain Medicine; Visit Provider Anesthesiology Pain Medicine
DX: Z91.81 History of falling (principal)
CPT/HCPCS: 72074

== ENCOUNTER 2024-01-08 10:41 | Emergency (ER) | payer MEDICARE, SELFPAY ==
[2024-01-08 10:41] VITALS: BP 123/65; PULSE 60; RESP 14; TEMP 36.6; O2SAT 98
--- NOTE | 2024-01-08 11:03 | RAD_ITS ---
STUDY: X-RAY - LEFT FEMUR REASON FOR STUDY: Female, 73 years old. Injury TECHNIQUE: 3 view(s) of the femur. COMPARISON: None. FINDINGS: The patient is status post left total hip replacement. There is good alignment. Normal visualized soft tissue structure. RAD/Femur Min 2 Views IMPRESSION: Status post left total hip replacement. There is good alignment. No abnormality is seen. Electronically Signed: Ra Madrigal MD at 12:00 EDT ,
--- NOTE | 2024-01-08 11:03 | RAD_ITS ---
STUDY: X-RAY - PELVIS REASON FOR EXAM: Female, 73 years old. Pain following injury. TECHNIQUE: One view of the pelvis was obtained. COMPARISON: None. FINDINGS: There is a non-specific bowel gas pattern. Normal visualized soft tissue structures. Normal bilateral iliac wings, sacroiliac joints and visualized sacrum. Normal visualized bilateral superior and inferior pubic rami. Normal pubic symphysis. Normal ischial tuberosities. There is deformity of the right femoral head suggestive of femoral acetabular impingement. There is osteoarthritic spur formation of the right acetabular rim. There is severe articular joint space narrowing of the right hip. Status post left total hip replacement. RAD/Pelvis 1 or 2 Views IMPRESSION: Marked degree of osteoarthritis of the right hip joint with evidence of femoral acetabular impingement. Status post left total hip replacement. Electronically Signed: Ra Madrigal MD at 11:55 EDT ,
--- NOTE | 2024-01-08 11:03 | EX.ED.DYSGE1 ---
HPI History of Present Illness Chief Complaint: Lower Extremity Injury Informant: patient and parent Narrative Narrative: 73-year-old female presenting to the emergency room chief complaint of left hip and femur pain. Patient states on Saturday she fell stepping off a sidewalk onto the parking lot at [facility]. She states she was helped her heat by her significant other and a bystander. She states that she has developed bruising of the left leg. She is on Eliquis. She denies any other injuries. She states that she used some tramadol that they had at the house which seemed to help her pain. However it has been very painful for her to move around. [facility] Medical History Stroke/cerebrovascular accident Chronic anticoagulation CKD (chronic kidney disease) Former tobacco use Chronic anemia HLD (hyperlipidemia) HTN (hypertension) Anxiety and depression Home Medications ?Medication ?Instructions ?Recorded ?Last Taken ?Type tramadol 50 mg tablet 50 mg PO Q6H PRN PRN Pain 08/10/13 08/10/13 05:30 History acetaminophen 500 mg capsule 1,000 mg PO Q6H PRN pain 01/25/23 Unknown History alendronate 70 mg tablet 70 mg PO QWEEK 01/25/23 Unknown History apixaban 5 mg tablet (Eliquis) 5 mg PO BID 01/25/23 Unknown History carvedilol 25 mg tablet 25 mg PO BID 01/25/23 Unknown History duloxetine 30 mg capsule,delayed 60 mg PO DAILY 01/25/23 Unknown History release potassium 99 mg tablet 99 mg PO DAILY 01/25/23 Unknown History valsartan 80 mg tablet 80 mg PO BID 01/25/23 Unknown History hydrocodone-acetaminophen 5-325mg 1 tab PO Q6H PRN PRN Pain 3 days 01/08/24 Unknown Rx 5mg-325mg #12 TABLETS Allergy/AdvReac Type Severity Reaction Status Date / Time Penicillins Allergy Intermediate Angioedema Verified 01/08/24 10:42 Sulfa (Sulfonamide Allergy Intermediate Angioedema Verified 01/08/24 10:42 Antibiotics) Surgical History History of hip surgery Hx of appendectomy Hx of cholecystectomy History of hysterectomy Social History household members: spouse Smoking Status: Former smoker how long ago did patient quit smoking: Quit 7 years prior to 01/26/23, smoked 1 ppd x 40 yrs. alcohol intake: never substance use type: does not use ROS ROS ED Constitutional Constitutional ED: Denies chills or weight loss Eyes Eyes: Denies change in vision or diplopia ENT ENT ED: Denies ear pain, rhinorrhea or sore throat Cardiovascular Cardiovascular: Denies chest pain, orthopnea, palpitations or racing heartbeat Respiratory/Chest Respiratory/Chest: Denies cough, dyspnea or orthopnea Gastrointestinal Gastrointestinal: Denies abdominal pain, diarrhea, nausea or vomiting Genitourinary Genitourinary ED: Denies dysuria, hematuria or urinary frequency Musculoskeletal Musculoskeletal: Reports other Details: See history of present illness ; Denies arthralgias or myalgias Integumentary Reports other Details: See history of present illness ; Denies abscess or rash Neurologic Neurologic: Denies headache(s) or weakness Psychiatric Psychiatric: Denies anxiety, depression, suicidal ideation or suicidal thoughts Endocrine Endocrinology: Denies polydipsia, polyphagia or polyuria Allergic/Immunologic Allergic/Immunologic ED: Denies mouth swelling, tongue swelling or urticaria EXAM Physical Exam Const Vital Signs: 01/08/24 10:41 Temperature 98 F Temperature Source Temporal Pulse Rate 60 Respiratory Rate 14 Blood Pressure 123/65 H Blood Pressure Mean 84 Pulse Ox 98 Oxygen Delivery Method Room Air Positive well nourished and well developed General Appearance ED: well developed HEENT Reports normocephalic, head/scalp atraumatic and moist mucous membranes Eyes PERRL and EOMs intact bilaterally Neck no lymphadenopathy, supple and no JVD Resp normal respiratory effort and clear to auscultation bilaterally Cardio regular rate, regular rhythm and no murmurs GI normal to inspection, nondistended, normoactive bowel sounds and non-tender Palpation: soft Back/Spine no CVA tenderness and normal ROM Extremity Extremity Narrative: Patient has a half dollar sized area of ecchymosis lateral distal third of the femur on the left. She has painful range of motion but is able to do so. There is no shortening or rotation. Neurovascular intact distal. Patient has abrasion to the posterior left elbow. She states that this is also from the fall General Extremety ED: Negative for edema General Extremity: Negative for edema Neuro oriented x3 and CN's II-XII intact bilaterally Sensorium / Orientation: alert Motor Exam: strength 5/5 throughout Psych mental status grossly normal Mood & Affect: Negative for depressed or tearful Skin no rashes or lesions noted and no wounds MDM MDM MDM Narrative Medical decision making narrative: Differential diagnosis includes but not limited to pelvic fracture hip fracture femur fracture traumatic bursitis muscle contusion tendon injury My independent interpretation of the plain films of the left femur and pelvis is no acute fracture. Patient received a dose of [place]. I went to discharge her home with supportive care. We encouraged her to use a walker to help bear weight and for balance. I would expect improvement over the next few days. Follow-up with primary care if not improving History & Record Review Discussion w/independent historian: Patient and Significant other Radiography Diagnostic Testing: Clinical Impression(s) from Imaging Studies Femur X-Ray 01/08/24 11:03 IMPRESSION: Status post left total hip replacement. There is good alignment. No abnormality is seen. Electronically Signed: Ra Madrigal MD at 12:00 EDT , Pelvis X-Ray 01/08/24 11:03 IMPRESSION: Marked degree of osteoarthritis of the right hip joint with evidence of femoral acetabular impingement. Status post left total hip replacement. Electronically Signed: Ra Madrigal MD at 11:55 EDT , Discharge Plan Triage Chief Complaint: Lower Extremity Injury ED Provider: Antonio Aldana Dx/Rx/DC Orders Clinical Impression: Fall, Contusion of left thigh, Acute thigh pain, Anticoagulated Instructions: ED Hematoma Prescriptions: New hydrocodone-acetaminophen 5-325 mg tablet 1 tab PO Q6H PRN PRN (Reason: Pain) 3 Days Qty: 12 0RF No Action tramadol 50 MG tablet 50 mg PO Q6H PRN PRN (Reason: Pain) Patient Comments: arthritic pain alendronate 70 mg tablet 70 mg PO QWEEK Patient Comments: take 1 tablet by mouth every week Rx Instructions: saturday mornings valsartan 80 mg tablet 80 mg PO BID Patient Comments: take 1 tablet by mouth twice a day Eliquis 5 mg tablet 5 mg PO BID carvedilol 25 mg tablet 25 mg PO BID duloxetine 30 mg capsule,delayed release(DR/EC) 60 mg PO DAILY Patient Comments: take 2 capsules by mouth once daily potassium 99 mg tablet 99 mg PO DAILY acetaminophen 500 mg capsule 1,000 mg PO Q6H PRN (Reason: pain) Primary Care Provider: Carlos Carrero Referrals: Carlos Carrero DO [Primary Care Provider] - Activity Restrictions/Additional Instructions: You may use either the tramadol or the hydrocodone for pain. Hydrocodone may be stronger in the short-term for pain control. Please do not use both at the same time. Do which she can to keep moving. I believe that the pain will eventually improve. You may use a walker to help take the weight off the leg. Print Language: Kiswahili Disposition Disposition: Home, Self Care
[2024-01-08] MEDS: HYDROcodone Bitartrate/Apap 5/325 Tablet PO (12:08)
[2024-01-08 12:16] VITALS: BP 146/70; PULSE 89; RESP 19; TEMP 36.6; O2SAT 99
== END 2024-01-08 12:22 | disposition home or self-care (01) ==
PROVIDERS: Emergency Provider Emergency Medicine; Visit Provider Emergency Medicine
DX: S70.12XA Contusion of left thigh, initial encounter (principal); N18.9 Chronic kidney disease, unspecified; Z79.01 Long term (current) use of anticoagulants; Z87.891 Personal history of nicotine dependence; E78.5 Hyperlipidemia, unspecified; I12.9 Hypertensive chronic kidney disease with stage 1 through stage 4 chronic kidney disease, or unspecified chronic kidney disease; M25.552 Pain in left hip; W10.9XXA Fall (on) (from) unspecified stairs and steps, initial encounter; Y92.481 Parking lot as the place of occurrence of the external cause
CPT/HCPCS: 72170; 73552; 99282